=== PATIENT | male | born 1975 | race Caucasian/White ===

== ENCOUNTER → 2020-09-28 13:57 | Outpatient (BNVA) | payer BC, SELFPAY | PROVIDERS: Visit Provider Family Medicine | DX: E78.2 Mixed hyperlipidemia (principal); I10 Essential (primary) hypertension; Q55.9 Congenital malformation of male genital organ, unspecified; K21.9 Gastro-esophageal reflux disease without esophagitis | CPT/HCPCS: 80053; 80061; 85025 ==

== ENCOUNTER → 2021-05-03 15:19 | Outpatient (BNVA) | payer BC, SELFPAY | PROVIDERS: Visit Provider Family Medicine | DX: E78.2 Mixed hyperlipidemia (principal); I10 Essential (primary) hypertension; N50.89 Other specified disorders of the male genital organs; K21.9 Gastro-esophageal reflux disease without esophagitis | CPT/HCPCS: 80053; 80061; 84443; 85025 ==

== ENCOUNTER → 2021-09-02 13:38 | Outpatient (BNVA) | payer BC, SELFPAY | PROVIDERS: Visit Provider Nurse Practitioner Family | DX: Z11.52 Encounter for screening for COVID-19 (principal); Z20.822 Contact with and (suspected) exposure to COVID-19 | CPT/HCPCS: 87635 ==

== ENCOUNTER → 2021-11-08 11:25 | Outpatient (BNVA) | payer BC, SELFPAY | PROVIDERS: Visit Provider Family Medicine | DX: E78.2 Mixed hyperlipidemia (principal); I10 Essential (primary) hypertension; K21.9 Gastro-esophageal reflux disease without esophagitis | CPT/HCPCS: 80053; 80061; 85025 ==

== ENCOUNTER → 2022-08-16 10:59 | Outpatient (BNVA) | payer BC, SELFPAY | PROVIDERS: PCP Family Medicine; Visit Provider Nurse Practitioner Family | DX: F41.9 Anxiety disorder, unspecified (principal); I10 Essential (primary) hypertension; E78.2 Mixed hyperlipidemia | CPT/HCPCS: 80053; 80061; 82607; 83735; 84443; 85025 ==

== ENCOUNTER → 2022-09-06 10:51 | Outpatient (BNVA) | payer BC, SELFPAY | PROVIDERS: PCP Family Medicine; Visit Provider Nurse Practitioner Family | DX: D72.819 Decreased white blood cell count, unspecified (principal) | CPT/HCPCS: 85025 ==

== ENCOUNTER 2022-10-30 21:51 | Inpatient (IN) | payer BC, SELFPAY ==
[2022-10-30 21:53] VITALS: BP 138/96; PULSE 104; RESP 22; TEMP 36.4; O2SAT 98
[2022-10-30 21:57] VITALS: PULSE 102
--- NOTE | 2022-10-30 22:00 | ED.C_ITS ---
HPI - Psych General: Chief Complaint: Anxiety Stated Complaint: anxiety, not feeling well Time Seen by Provider: 10/30/22 21:53 Source: patient and EMS Mode of arrival: EMS Limitations: no limitations History of Present Illness: 46-year-old male states he is got a long history anxiety states has been having increasing anxiety over the last few weeks states he has been having depression along with some suicidal thoughts due to his severe anxiety he states he has no specific plan he is not currently feeling suicidal but he has had some passing suicidal thoughts. He states that he feels like he needs to get inpatient psychiatric help. Associated symptoms: Reports depression Review of Systems Const: Denies: fever(s), chills, body aches or change in appetite Eyes: Denies: blurry vision or eye discomfort ENMT: Denies: throat pain or dental pain Card: Denies: chest pain Resp: Denies: dyspnea GI: Denies: abdominal pain, nausea, vomiting or diarrhea : Denies: dysuria Musc: Denies: neck pain or back pain Skin/Breast: Denies: rash Neuro: Denies: headache(s) Psych: Reports: anxiety and depression Tony/Lymph: Denies: easy bruising All/Imm: Denies: urticaria PFSH ED PFSH: Medical History Anxiety Hypertension Mixed hyperlipidemia Social History Smoking and tobacco status: never smoked Second hand smoke exposure: No Alcohol intake: never Adopted: Yes Caregiver/support person: Yes Lives independently: Yes Marital status: Single service: No Current occupational status: employed Current occupation: [employer] History of recent travel: No Current gender identity: Male Special ari needs: No Physical Exam Const: COMMON NORMALS: no acute distress, patient oriented x3 and healthy appearing GENERAL APPEARANCE: anxious HENMT: COMMON NORMALS: normocephalic and atraumatic HEAD & SCALP: norm ocephalic and atraumatic Eye: COMMON NORMALS: Equal, round and reactive pupils present and EOMs intact bilaterally PUPIL: Yes Equal, round and reactive pupils present Neck/C-Spine: COMMON NORMALS: full ROM and supple Chest: COMMONS NORMALS: normal inspection of the chest and normal palpation of entire chest wall Resp: COMMON NORMALS: normal respiratory effort, No retractions, No use of accessory muscles and clear to auscultation bilaterally AUSCULTATION: clear to auscultation bilaterally Cardio: COMMON NORMALS: regular rate, regular rhythm and No murmurs present (Cardio) RATE: regular rate RHYTHM: regular rhythm GI: COMMON NORMALS: Normal to inspection, nondistended, normoactive bowel sounds present, Soft to palpation, non-tender and no masses PALPATION: Yes Soft to palpation Extremity: COMMON NORMALS: normal to inspection and full ROM Neuro: COMMON NORMALS: patient oriented x3, moves all extremities and no focal motor deficits Psych: COMMON NORMALS: mental status grossly normal, Normal thought process present and cooperative MOOD & AFFECT: Yes depressed mood and Yes anxious THOUGHT PROCESS: Normal thought process present Skin: COMMON NORMALS: no rashes or lesions noted and no wounds GENERAL SKIN EXAM: no rashes or lesions noted Course Vital Signs: Vital signs: Vital Signs Temperature 97.6 F 10/30/22 21:53 Pulse Rate 98 10/30/22 23:00 Respiratory Rate 18 10/30/22 23:00 Blood Pressure 135/92 10/30/22 23:00 Pulse Oximetry 98 10/30/22 23:00 Oxygen Delivery Me thod 10/30/22 21:53 MDM - Psych Medical Decision Making Patient presents here with anxiety along with depression with some suicidal ideations patient voluntarily would like to be admitted patient is medically cleared I spoke to psychiatry Dr. Elizondo and will admit to the psych singletary. Lab Data 10/30/22 22:03 10/30/22 22:03 Laboratory Results WBC 9.0 10^3/uL (4.0-10.0) 10/30/22 22:03 RBC 5.85 10^6/uL (4.1-5.3) H 10/30/22 22:03 Hgb 14.8 g/dL (11.7-16.6) 10/30/22 22:03 Hct 45.8 % (42.0-52.0) 10/30/22 22:03 MCV 78.3 fl (80-94) L 10/30/22 22:03 MCH 25.3 pg (28.0-34.0) L 10/30/22 22:03 MCHC 32.3 g/dL (30.0-36.0) 10/30/22 22:03 RDW 16.2 % (12.1-15.1) H 10/30/22 22:03 Plt Count 278 10^3/cmm (130-400) 10/30/22 22:03 MPV 9.4 fL (7.4-10.4) 10/30/22 22:03 Neut % (Auto) 70.8 % 10/30/22 22:03 Lymph % (Auto) 21.5 % 10/30/22 22:03 [place] % (Auto) 7.2 % 10/30/22 22:03 Eos % (Auto) 0.2 % 10/30/22 22:03 Baso % (Auto) 0.2 % 10/30/22 22:03 Neut # (Auto) 6.36 10^3/uL (1.8-7.7) 10/30/22 22:03 Lymph # (Auto) 1.9 10^3/uL (0.8-4.8) 10/30/22 22:03 [place] # (Auto) 0.7 10^3/uL (0.2-0.9) 10/30/22 22:03 Eos # (Auto) 0.0 10^3/uL (0.0-0.8) 10/30/22 22:03 Baso # (Auto) 0.0 10^3/uL (0.0-0.1) 10/30/22 22:03 Nucleated RBC % (auto) 0 % 10/30/22 22:03 Nucleated RBCs # 0.0 /100WBC 10/30/22 22:03 Sodium 141 mmol/L (136-145) 10/30/22 22:03 Potassium 3.9 mmol/L (3.5-5.1) 10/30/22 22:03 Chloride 106 mmol/L (98-107) 10/30/22 22:03 Carbon Dioxide 21 mmol/L (22-29) L 10/30/22 22:03 Anion Gap 17.9 (5-19) 10/30/22 22:03 BUN 15 mg/dL (6-20) 10/30/22 22:03 Creatinine 1.1 mg/dL (0.7-1.2) 10/30/22 22:03 GFR Calculation 72.1 mL/min (90-130) L 10/30/22 22:03 Glucose 80 mg/dL (65-115) 10/30/22 22:03 Calculated Osmolality 292 mOsm/kg (285-295) 10/30/22 22:03 Calcium 9.6 mg/dL (8.5-10.5) 10/30/22 22:03 Total Bilirubin 0.6 mg/dL (0.15-1.2) 10/30/22 22:03 AST 17 U/L (0-40) 10/30/22 22:03 ALT 20 U/L (0-41) 10/30/22 22:03 Alkaline Phosphatase 100 U/L (40-130) 10/30/22 22:03 Total Protein 7.5 g/dL (6.6-8.7) 10/30/22 22:03 Albumin 4.7 g/dL (3.5-5.2) 10/30/22 22:03 Globulin 2.8 g/dL (1.3-4.6) 10/30/22 22:03 Salicylates < 0.3 mg/dL (3-10) L 10/30/22 22:03 Urine Opiates Screen Negative ng/mL (Negative) 10/30/22 22:18 Acetaminophen < 5.0 ug/mL (10-30) L 10/30/22 22:03 Ur Barbiturates Screen Negative ng/mL (Negative) 10/30/22 22:18 Ur Phencyclidine Scrn Negative ng/mL (Negative) 10/30/22 22:18 Ur Amphetamines Screen Negative ng/mL (Negative) 10/30/22 22:18 U Benzodiazepines Scrn Positive ng/mL (Negative) H 10/30/22 22:18 Urine Cocaine Screen Negative ng/mL (Negative) 10/30/22 22:18 U Marijuana (THC) Screen Negative ng/mL (Negative) 10/30/22 22:18 Ethyl Alcohol < 10 mg/dL (0-10) 10/30/22 22:03 Discharge Plan Discharge Patient Disposition: Admitted As Inpatient Admit Provider: Karson Elizondo Clinical Impression: Acute anxiety, Suicidal ideation Condition: Stable Coding Level of Care Code ED Aboriginal Ceremonial Celebrant for Aguedag Fwd Exam Comprehensive
[2022-10-30] MEDS: LORazepam 1 mg Tablet 2 MG PO (22:14)
[2022-10-30 22:15] LABS: Basophils % 0.2 %; Eosinophils % 0.2 %; Hematocrit 45.8 % (42.0-52.0); Hemoglobin 14.8 g/dL (11.7-16.6); Lymphocytes # 1.9 10^3/uL (0.8-4.8); Lymphocytes % 21.5 %; Mean Corpuscular HGB Conc 32.3 g/dL (30.0-36.0); Mean Corpuscular Hemoglobin 25.3 pg (28.0-34.0); Mean Corpuscular Volume 78.3 fl (80-94); Mean Platelet Volume 9.4 fL (7.4-10.4); Monocytes # 0.7 10^3/uL (0.2-0.9); Monocytes % 7.2 %; Neutrophils # 6.36 10^3/uL (1.8-7.7); Neutrophils % 70.8 %; Nucleated Red Blood Cells % 0 %; Platelet Count 278 10^3/cmm (130-400); Red Blood Count 5.85 10^6/uL (4.1-5.3); Red Cell Distribution Width 16.2 % (12.1-15.1)
[2022-10-30 22:30] LABS: Amphetamines Screen Urine Negative (Negative); Barbiturates Screen Urine Negative (Negative); Benzodiazepines Screen Urine Positive (Negative); Cocaine Screen Urine Negative (Negative); Opiate Screen Urine Negative (Negative); PCP Screen Urine Negative (Negative); THC Screen Urine Negative (Negative)
[2022-10-30 22:45] LABS: Alanine Aminotransferase 20 U/L (0-41); Albumin Level 4.7 g/dL (3.5-5.2); Alkaline Phosphatase 100 U/L (40-130); Anion Gap 17.9 (5-19); Aspartate Amino Transferase 17 U/L (0-40); Blood Urea Nitrogen 15 mg/dL (6-20); Calcium 9.6 mg/dL (8.5-10.5); Carbon Dioxide 21 mmol/L (22-29); Chloride 106 mmol/L (98-107); Globulin 2.8 g/dL (1.3-4.6); Glomerular Filtration Rate 72.1 mL/min (90-130); Glucose 80 mg/dL (65-115); Osmolality Calculated 292 mOsm/kg (285-295); Potassium 3.9 mmol/L (3.5-5.1); Sodium 141 mmol/L (136-145); Total Bilirubin 0.6 mg/dL (0.15-1.2); Total Protein 7.5 g/dL (6.6-8.7)
--- NOTE | 2022-10-30 22:46 | ECG_ITS ---
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 Measurements Intervals [place] Rate: 102 P: 41 OR: 174 QRS: 62 QRSD: 114 T: 13 QT: 359 QTc: 468 Interpretive Statements SINUS TACHYCARDIA MODERATE INTRAVENTRICULAR CONDUCTION DELAY [110+ ms QRS DURATION] NONSPECIFIC ST ELEVATION [0.05+ mV ST ELEVATION] No previous ECG available for comparison Electronically Signed On 10-31-2022 17:47:20 HOOP BENDER TANK by Yannick Medina M.D. [id number]
[2022-10-30 22:57] LABS: Acetaminophen < 5.0 ug/mL (10-30); Alcohol Level < 10 mg/dL (0-10); Salicylate < 0.3 mg/dL (3-10)
--- NOTE | 2022-10-30 22:59 | PC.NURSE ---
Sister, Christine, updated on patient care as requested by pt.
[2022-10-30 23:00] VITALS: BP 135/92; PULSE 98; RESP 18; O2SAT 98
[2022-10-30 23:10] VITALS: BP 114/76; PULSE 110; RESP 18; O2SAT 93
[2022-10-31] MEDS: hyDROXYzine 25 mg Capsule 50 MG PO (00:25)
[2022-10-31 06:00] VITALS: RESP 18
--- NOTE | 2022-10-31 06:33 | PC.NURSE ---
46-yr.old male admitted to room #154-2. Arrived to unit from ED via w/c accompanied by RN and security. Patient calm and cooperative with assessment. Denies SI, HI or AVH. Rated anxiety at a 1/10 and when asked about depression stated I'm good. Denied pain. Alert and Ox4. Stated he has been having trouble with anxiety and dizziness for several weeks now. Stated he was driving home from work and felt overwhelmed so he stopped at a neighbor's house so they could call 911. Reported he was feeling tingling in his hand and his heart was palpitating. VS-WNL when taken on this unit. Skin assessment completed with no skin issues noted. No contraband found. Patient is voluntary. Unit rules and expectations reviewed. Voiced understanding. Snacks and fluids offered and taken. Orientated to unit and room.
[2022-10-31] MEDS: famotidine 20 mg Tablet PO ×2 (08:40→20:11)
[2022-10-31] MEDS: lisinopril 5 mg Tablet PO (08:40)
[2022-10-31] MEDS: atorvastatin 40 mg Tablet PO (08:40)
--- NOTE | 2022-10-31 10:42 | P.NPUHP_ITS ---
Providers/Chief Complaint Admitting Physician: Aldair Khalil MD Primary Care Provider: Wandy Mcfadden MD Chief Complaint: anxiety, not feeling well HPI NPU History of Present Illness Cipriano Lewis is a 46 year old male with no previous history of inpatient psy chiatric treatment who had arrived into the emergency room complaining of having anxiety that has been exacerbated over the past few weeks due to unspecified stress. He reports that he has been having problems with managing worry since his childhood. He reports having difficulties with controlling worry and often struggles with having difficulties with both falling asleep and staying asleep. He reports that he had been working on a daily basis but on the day of his admission mission he had gone to work and felt that he would not be able to manage himself. He reports that he has been complaining of problems with his balance and has complaints of dizziness. He had reported that his primary care provider had placed him on Valium for this problem approximately 6 months ago. He complains of feeling muscle tension at times and often complains of upset stomach and reports having difficulties with managing stress. He reports that he may become irritable at times due to his stress. He reports that over the course of the past several months the ongoing medical issues including the dizz iness has led to the patient feeling more depressed with diminished energy decreased appetite and low motivation. He reports that he has not had any plan to hurt himself although he had reported some statements in the past that he had felt so anxious that he felt as if he was going to . He reports no history of manic symptoms. He denies any history of psychotic symptoms. He reports that he is frequently isolative and reports no use of drugs or alcohol. He reports no prior history of self-injurious behavior. The patient reports that he had been attempting to receive outpatient psychiatric treatment along with therapy but reports that the waiting list had been extensive and he reports that he was uncertain as to whether he could manage his anxiety unless something had changed. Inpatient psychiatric history: None Outpatient psychiatric history: None Medical history hypertension, mixed hyperlipidemia, hiatal hernia by history, Surgical History: none Allergies: nkda Medications: Valium 2mg at night, lisinopril, crestor, famotidine, Legal History: none Drug and Alcohol history: none Family psychiatric history: alcoholism-father Social History: no developmental delays noted, he reports having no contact with his biological parents as he states that he was adopted nearly at and raised by his adoptive parents. He was born in [facility] and has a few siblings. He denied any history of sexual physical or emotional abuse. He reports that his father had when the patient was 17 years old. He had graduated high school and reported that he was anxious in school and often struggled with relationships with others as he currently has never been nor is he dating. He has no children. He has been working for the last 18 years in a [employer] in [place] and currently lives by himself in his own home in [place] [facility]. Meds NPU Home Medications Medication Instructions Recorded Confirmed Last Taken Type famotidine 20 mg tablet (Pepcid) 20 mg PO BID #60 tabs 11/23/20 10/31/22 10/30/22 Rx diazepam 2 mg tablet 2 mg PO .qhs vertigo #30 tabs 10/04/22 10/31/22 10/30/22 Rx lisinopril 5 mg tablet 5 mg PO DAILY 10/31/22 10/31/22 10/30/22 History rosuvastatin 20 mg tablet 20 mg PO DAILY 10/31/22 10/31/22 10/30/22 History Allergies Allergy/AdvReac Type Severity Reaction Status Date / Time No Known Allergies Allergy Verified 10/10/22 08:53 [facility] NPU PFSH: Medical History Anxiety Hypertension Mixed hyperlipidemia Social History Smoking and tobacco status: never smoked Second hand smoke exposure: No Alcohol intake: never Adopted: Yes Caregiver/support person: Yes Lives independently: Yes Marital status: Single service: No Current occupational status: employed Current occupation: [employer] History of recent travel: No Current gender identity: Male Special ari needs: No Mental Status Exam MSE Comments: He is then anxious white male who appeared his stated age he was sweating throughout much of the interview with a jay complexion. He had fleeting eye contact but was pleasant but in some acute distress. His gait was within normal limits. His hygiene was fair. There was no evidence of any abnormal involuntary motor movements tics or tremors appreciated. His speech was normal in regards to rate rhythm and prosody. There was no evidence of any pressured speech. his mood was described as anxious. His affect was mood congruent and anxious with restricted range appreciated. He minimized any suicidal or homicidal ideation. He did not appear to be responding internal stimuli. There was no evidence of any delusional thinking. He had a few somatic complaints. His attention appeared variable as it appeared at times to be lost in thought and struggled with answering questions succinctly. His insight was poor. His judgment was poor. His impulse control remained guarded. He was alert and oriented to person place and time. His recent and remote memory appeared intact. Vitals/I&O/Wt Last Vital Signs Temp 97.6 F 10/30/22 21:53 Pulse 110 H 10/30/22 23:10 Resp 18 10/31/22 06:00 BP 114/76 10/30/22 23:10 Pulse Ox 93 10/30/22 23:10 O2 Del Method 10/30/22 23:09 Weight last 48 hrs Weight 88.995 kg Data NPU 10/30/22 22:03 10/30/22 22:03 A&P Assessment and plan (1) Suicidal ideation: . (2) Generalized anxiety disorder: (3) Major depressive disorder: Plan The patient is a 46-year-old white male who presents with significant anxiety somatic complaints with vague unclear suicidal thoughts with limited psychiatric treatment in the past and with an extended history of anxiety currently on no medications and not receiving psychotherapy. #1 therapeutic observation 15-minute checks. #2 recommend sober living treatment at the highest level of care to which the patient is willing to commit. #3 change Valium to 1 mg twice a day. #4 restart other medications and begin Zoloft 25 mg daily anxiety and depression. #5 engage patient in individual milieu and group therapy Involuntary Hold Information 96 Hour Hold: 96 Hour Involuntary Admission: No Attestations NPU Medical Necessity Statement*: Inpatient hospitalization is medically necessary and the clinical appropriate intervention at this time. We will monitor medications and make changes as indicated. The patient will be in the hospital for over 2 midnights. His likely length of stay is 3 to 5 days. Coding Level of Care Code New Pt Acute Spray Gun Striper for Aguedag Fwd Patient Type New History Problem Focused Exam Problem Focused Medical Decision Making Straight Forward Diagnoses Suicidal ideation R45.851 Generalized anxiety disorder F41.1 Major depressive disorder F32.9
[2022-10-31 14:00] VITALS: BP 150/89; PULSE 106; RESP 18; TEMP 36.4; O2SAT 99
[2022-10-31 20:22] VITALS: BP 123/83; PULSE 91; RESP 18; TEMP 36.5; O2SAT 97
[2022-11-01 06:00] VITALS: RESP 16
[2022-11-01] MEDS: lisinopril 5 mg Tablet PO (10:30)
[2022-11-01] MEDS: famotidine 20 mg Tablet PO ×2 (10:30→18:24)
[2022-11-01] MEDS: atorvastatin 40 mg Tablet PO (10:31)
[2022-11-01] MEDS: sertraline 50 mg Tablet 25 MG PO (11:18)
[2022-11-01] MEDS: diazePAM 2 mg Tablet 1 MG PO ×2 (11:51→18:24)
[2022-11-01 14:00] VITALS: BP 126/83; PULSE 106; RESP 18; TEMP 36.6; O2SAT 98
--- NOTE | 2022-11-01 18:39 | W.PM.NPUPNS ---
Subjective NPU Subjective: 46-year-old white male with a history of anxiety and depression admitted for vague suicidal ideation. He continued to endorse feeling lightheaded at times. He had reported struggles with maintaining his concentration and reported chronic worry to the extent that it had led him to be unable to attend work without feeling excessively anxious to the point that he would have to leave. He reports the depression had been severe and continues to report depressed mood but reports feeling more hopeful about getting help. He did not endorse any suicidal thoughts. He had reported that his 2 older sisters had been very concerned about his wellbeing. Staff notes the patient had been somewhat anxious and the patient reported having difficulties with attending groups as he felt off and that people were judging him in social situations. Mental Status Exam MSE Comments: He is then anxious white male who appeared his stated age he was sweating throughout much of the interview with a jay complexion. He had fleeting eye contact but was pleasant but in some acute distress. His gait was within normal limits. His hygiene was fair. There was no evidence of any abnormal involuntary motor movements tics or tremors appreciated. His speech was normal in regards to rate rhythm and prosody. There was no evidence of any pressured speech. his mood was described as okay. His affect was mood incongruent and anxious with restricted range appreciated. He minimized any suicidal or homicidal ideation. He did not appear to be responding internal stimuli. There was no evidence of any delusional thinking. He had a few somatic complaints. His attention appeared variable as it appeared at times to be lost in thought and struggled with answering questions succinctly. His insight was poor. His judgment was poor. His impulse control remained guarded. He was alert and oriented to person place and time. His recent and remote memory appeared intact. Vitals/I&O/Wt Last Vital Signs Temp 97.9 F 11/01/22 14:00 Pulse 106 H 11/01/22 14:00 Resp 18 11/01/22 14:00 BP 126/83 11/01/22 14:00 Pulse Ox 98 11/01/22 14:00 O2 Del Method 11/01/22 14:00 Weight last 48 hrs Weight 88.995 kg Data NPU 10/30/22 22:03 10/30/22 22:03 A&P Assessment and plan (1) Suicidal ideation: . (2) Generalized anxiety disorder: (3) Major depressive disorder: Plan The patient is a 46-year-old white male who presents with significant anxiety somatic complaints with vague unclear suicidal thoughts with limited psychiatric treatment in the past and with an extended history of anxiety currently on no medications and not receiving psychotherapy. #1 therapeutic observation 15-minute checks. #2 recommend sober living treatment at the highest level of care to which the patient is willing to commit. #3 change Valium to 1 mg twice a day. #4 restart other medications and begin Zoloft 25 mg daily anxiety and depression. #5 engage patient in individual milieu and group therapy Involuntary Hold Information 96 Hour Hold: 96 Hour Involuntary Admission: No Attestations NPU Medical Necessity Statement*: Inpatient hospitalization is medically necessary and the clinical appropriate intervention at this time. We will monitor medications and make changes as indicated with his likely length of stay is 3 to 5 days. Coding Level of Care Code Established Pt Acute Operations Plant Attendant for Nevaeh Saavedra Patient Type Established History Problem Focused Exam Problem Focused Medical Decision Making Straight Forward Diagnoses Suicidal ideation R45.851 Generalized anxiety disorder F41.1 Major depressive disorder F32.9
[2022-11-01 20:22] VITALS: BP 121/76; PULSE 95; RESP 16; TEMP 36.4; O2SAT 99
[2022-11-02 06:00] VITALS: RESP 18
[2022-11-02] MEDS: famotidine 20 mg Tablet PO ×2 (08:24→17:10)
[2022-11-02] MEDS: atorvastatin 40 mg Tablet PO (08:25)
[2022-11-02] MEDS: diazePAM 2 mg Tablet 1 MG PO ×2 (08:25→17:10)
[2022-11-02] MEDS: sertraline 50 mg Tablet 25 MG PO (08:25)
[2022-11-02] MEDS: lisinopril 5 mg Tablet PO (08:25)
[2022-11-02 14:00] VITALS: RESP 18
--- NOTE | 2022-11-02 17:11 | PC.NURSE ---
HEATER ENGINEER HELPER HI WITNESS WASTING 1MG OF DIAZEPAM IN SHARPS CONTAINER AT NURSES STATION.
--- NOTE | 2022-11-02 17:14 | P.NPUPN_ITS ---
Subjective NPU Subjective: 46-year-old white male with a history of anxiety and depression admitted for vague suicidal ideation. He continued to endorse feeling lightheaded. He reported anxiety about returning to his job and losing it again. Patient had continued to report having a myriad of different worries and reported having difficulties with controlling his worry. He had continued to ruminate about his problems. He had reported that he had often been paralyzed by his anxiety and reported struggles in social situations. Patient denied thoughts of hurting himself. He did not endorse any problems with his medications at this time. He had reported that he felt that he had had a panic attack which had caused his initial worry that had led to his hospitalization. Mental Status Exam MSE Comments: He is an anxious white male who appeared his stated age. He was sweating throughout much of the interview with a jay complexion. He had fleeting eye contact but was pleasant but in some acute distress. His gait was within normal limits. His hygiene was fair. There was no evidence of any abnormal involuntary motor movements tics or tremors appreciated. His speech was normal in regards to rate with some stammering noted. There was no evidence of any pressured speech. His mood was described as allright. His affect was mood incongruent and anxious with restricted range appreciated. He minimized any suicidal or homicidal ideation. He did not appear to be responding internal stimuli. There was no evidence of any delusional thinking. He had a few somatic complaints. His attention appeared variable as it appeared at times to be lost in thought and struggled with answering questions succinctly. His insight was poor. His judgment was poor. His impulse control remained guarded. He was alert and oriented to person place and time. His recent and remote memory appeared intact. Vitals/I&O/Wt Last Vital Signs Temp 97.6 F 11/01/22 20:22 Pulse 95 11/01/22 20:22 Resp 18 11/02/22 06:00 BP 121/76 11/01/22 20:22 Pulse Ox 99 11/01/22 20:22 O2 Del Method 11/01/22 14:00 Data NPU 10/30/22 22:03 10/30/22 22:03 A&P Assessment and plan (1) Suicidal ideation: . (2) Generalized anxiety disorder: (3) Major depressive disorder: Plan The patient is a 46-year-old white male who presents with significant anxiety somatic complaints with vague unclear suicidal thoughts with limited psychiatric treatment in the past and with an extended history of anxiety currently on no medications and not receiving psychotherapy. #1 therapeutic observation 15-minute checks. #2 recommend sober living treatment at the highest level of care to which the patient is willing to commit. #3 change Valium to 1 mg twice a day. #4 increase Zoloft to 50 mg daily anxiety and depression. #5 engage patient in individual milieu and group therapy Involuntary Hold Information 96 Hour Hold: 96 Hour Involuntary Admission: No Attestations NPU Medical Necessity Statement*: Inpatient hospitalization is medically necessary and the clinical appropriate intervention at this time. We will monitor medications and make changes as indicated with his likely length of stay is 3 to 5 days. Coding Level of Care Code Established Pt Acute Internet Designer for Nevaeh Saavedra Patient Type Established History Problem Focused Exam Problem Focused Medical Decision Making Straight Forward Diagnoses Suicidal ideation R45.851 Generalized anxiety disorder F41.1 Major depressive disorder F32.9
[2022-11-02 19:53] VITALS: BP 128/80; PULSE 92; RESP 16; TEMP 36.6; O2SAT 98
[2022-11-03 05:59] VITALS: BP 125/88; PULSE 107; RESP 16; TEMP 37; O2SAT 97
[2022-11-03] MEDS: famotidine 20 mg Tablet PO (08:57)
[2022-11-03] MEDS: diazePAM 2 mg Tablet 1 MG PO (08:58)
[2022-11-03] MEDS: lisinopril 5 mg Tablet PO (08:58)
[2022-11-03] MEDS: atorvastatin 40 mg Tablet PO (08:59)
[2022-11-03] MEDS: sertraline 50 mg Tablet 25 MG PO (09:01)
--- NOTE | 2022-11-03 15:46 | W.PM.NPUDCS ---
Diagnoses at Discharge Discharge Diagnosis (1) Suicidal ideation: Status: Acute (2) Generalized anxiety disorder: Status: Acute (3) Major depressive disorder: Status: Acute Reason for Visit Reason for Visit: anxiety, not feeling well Brief History: History of Present Illness Cipriano Lewis is a 46 year old male with no previous history of inpatient psychiatric treatment who had arrived into the emergency room complaining of having anxiety that has been exacerbated over the past few weeks due to unspecified stress.? He reports that he has been having problems with managing worry since his childhood.? He reports having difficulties with controlling worry and often struggles with having difficulties with both falling asleep and staying asleep.? He reports that he had been working on a daily basis but on the day of his admission mission he had gone to work and felt that he would not be able to manage himself.? He reports that he has been complaining of problems with his balance and has complaints of dizziness.? He had reported that his primary care provider had placed him on Valium for this problem approximately 6 months ago.? He complains of feeling muscle tension at times and often complains of upset stomach and reports having difficulties with managing stress.? He reports that he may become irritable at times due to his stress.? He reports that over the course of the past several months the ongoing medical issues including the dizziness has led to the patient feeling more depressed with diminished energy decreased appetite and low motivation.? He reports that he has not had any plan to hurt himself although he had reported some statements in the past that he had felt so anxious that he felt as if he was going to .? He reports no history of manic symptoms.? He denies any history of psychotic symptoms.? He reports that he is frequently isolative and reports no use of drugs or alcohol.? He reports no prior history of self-injurious behavior.? The patient reports that he had been attempting to receive outpatient psychiatric treatment along with therapy but reports that the waiting list had been extensive and he reports that he was uncertain as to whether he could manage his anxiety unless something had changed. Inpatient psychiatric history: None Outpatient psychiatric history: None Medical history hypertension, mixed hyperlipidemia, hiatal hernia by history, Surgical History: none Allergies: nkda Medications: Valium 2mg at night, lisinopril, crestor, famotidine, Legal History: none Drug and Alcohol history: none Family psychiatric history: alcoholism-father Social History: no developmental delays noted, he reports having no contact with his biological parents as he states that he was adopted nearly at and raised by his adoptive parents.? He was born in [place] [facility] and has a few siblings.? He denied any history of sexual physical or emotional abuse.? He reports that his father had when the patient was 17 years old.? He had graduated high school and reported that he was anxious in school and often struggled with relationships with others as he currently has never been nor is he dating.? He has no children.? 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 Hospital Course Hospital Course Discharge Summary: During the hospitalization, patient had routine laboratory studies which were within normal limits except for few outliers. Additionally there was a general medical evaluation which was also within normal limits and revealed no new acute processes. The patient was endorsing symptoms suggestive of generalized anxiety disorder and major depressive disorder and the patient's diazepam was adjusted to 1 mg twice a day instead of 2 mg at night. Furthermore, patient was started on Zoloft and titrated up to a dose of 50 mg daily. Patient had reported a desire for psychotherapy and this was deemed to be essential for his success on an outpatient basis. At the time of discharge, lethality was denied and psychosis was resolving. Mood and anxiety were well managed. Patient endorsed a plan to avoid all drugs of abuse and follow-up with the aftercare recommendations of the treatment team. Patient was evaluated and deemed to be absent credible lethality, and had achieved the maximum benefit from an inpatient hospitalization, so was discharged. Involuntary Hold Information 96 Hour Hold: 96 Hour Involuntary Admission: No Mental Status Exam MSE Comments: He is an anxious white male who appeared his stated age. He was sweating throughout much of the interview. He had fleeting eye contact and gaze avoidance but was pleasant but in some acute distress. His gait was within normal limits. His hygiene was fair. There was no evidence of any abnormal involuntary motor movements tics or tremors appreciated. His speech was normal in regards to rate and rhythm. There was no evidence of any pressured speech. His mood was described as allright. His affect was anxious. He minimized any suicidal or homicidal ideation on discharge. He did not appear to be responding internal stimuli. There was no evidence of any delusional thinking. He had continued few somatic complaints. His attention remained variable. His insight was limited. His judgment was adequate. His impulse control was fair. He was alert and oriented to person place and time. His recent and remote memory appeared intact. Discharge Data Studies Completed and Pending: Laboratory Results WBC 9.0 10^3/uL (4.0- 10.0) 10/30/22 22:03 RBC 5.85 10^6/uL (4.1 -5.3) H 10/30/22 22:03 Hgb 14.8 g/dL (11.7-1 6.6) 10/30/22:03 Hct 45.8 % (42.0-52.0 ) 10/30/22: MCV 78.3 fl (80-94) L 10/30/22: MCH 25.3 pg (28.0-34. 0) L 10/30/22: MCHC 32.3 g/dL (30.0-3 6.0) 10/30/22 22: RDW 16.2 % (12.1-15.1 ) H 10/30/22 22:03 Plt Count 278 10^3/cmm (130 -400) 10/30/22 22:03 MPV 9.4 fL (7.4-10.4) 10/30/22 22:03 Neut % (Auto) 70.8 % 10/30/22 22:03 Lymph % (Auto) 21.5 % 10/30/22 22:03 [place] % (Auto) 7.2 % 10/30/22 22: Eos % (Auto) 0.2 % 10/30/22 22:03 Baso % (Auto) 0.2 % 10/30/22 22:03 Neut # (Auto) 6.36 10^3/uL (1.8 -7.7) 10/30/22:03 Lymph # (Auto) 1.9 10^3/uL (0.8- 4.8) 10/30/22 22:03 [place] # (Auto) 0.7 10^3/uL (0.2- 0.9) 10/30/22 22:03 Eos # (Auto) 0.0 10^3/uL (0.0- 0.8) 10/30/22 22:03 Baso # (Auto) 0.0 10^3/uL (0.0- 0.1) 10/30/22 22:03 Nucleated RBC % (a uto) 0 % 10/30/22 22:03 Nucleated RBCs # 0.0 /100WBC 10/30/22 22:03 Sodium 141 mmol/L (136-1 45) 10/30/22 22:03 Potassium 3.9 mmol/L (3.5-5 .1) 10/30/22 22:03 Chloride 106 mmol/L (98-10 7) 10/30/22 22:03 Carbon Dioxide 21 mmol/L (22-29) L 10/30/22 22:03 Anion Gap 17.9 (5-19) 10/30/22 22:03 BUN 15 mg/dL (6-20) 10/30/22 22:03 Creatinine 1.1 mg/dL (0.7-1. 2) 10/30/22 22:03 GFR Calculation 72.1 mL/min (90-1 30) L 10/30/22 22:03 Glucose 80 mg/dL (65-115) 10/30/22 22:03 Calculated Osmolal ity 292 mOsm/kg (285- 295) 10/30/22 22:03 Calcium 9.6 mg/dL (8.5-10 .5) 10/30/22 22:03 Total Bilirubin 0.6 mg/dL (0.15-1 .2) 10/30/22 22:03 AST 17 U/L (0-40) 10/30/22 22: ALT 20 U/L (0-41) 10/30/22 22:03 Alkaline Phosphata se 100 U/L (40-130) 10/30/22 22:03 Total Protein 7.5 g/dL (6.6-8.7 ) 10/30/22 22: Albumin 4.7 g/dL (3.5-5.2 ) 10/30/22 22: Globulin 2.8 g/dL (1.3-4.6 ) 10/30/22 22:03 Salicylates < 0.3 mg/dL (3-10 ) L 10/30/22 22:03 Urine Opiates Scre en Negative ng/mL (N egative) 10/30/22 22:18 Acetaminophen < 5.0 ug/mL (10-3 0) L 10/30/22 22:03 Ur Barbiturates Sc reen Negative ng/mL (N egative) 10/30/22 22:18 Ur Phencyclidine S crn Negative ng/mL (N egative) 10/30/22 22:18 Ur Amphetamines Sc reen Negative ng/mL (N egative) 10/30/22 22:18 U Benzodiazepines Scrn Positive ng/mL (N egative) H 10/30/22 22:18 Urine Cocaine Scre en Negative ng/mL (N egative) 10/30/22 22:18 U Marijuana (THC) Screen Negative ng/mL (N egative) 10/30/22 22:18 Ethyl Alcohol < 10 mg/dL (0-10) 10/30/22 22:03 Vitals: Last Vital Signs Temp 98.6 F 11/03/22 05:59 Pulse 107 H 11/03/22 05:59 Resp 16 11/03/22 05:59 BP 125/88 11/03/22 05:59 Pulse Ox 97 11/03/22 05:59 O2 Del Method 11/02/22 19:53 Discharge Plan Discharge Patient Disposition: Home Condition: Stable Prescriptions: New diazepam 2 mg Tablet 1 mg PO BID 15 Days Qty: 15 1RF sertraline 50 mg Tablet 50 mg PO DAILY 30 Days Qty: 30 1RF Continued famotidine [Pepcid] 20 mg tablet 20 mg PO BID Qty: 60 3RF lisinopril 5 mg tablet 5 mg PO DAILY rosuvastatin 20 mg tablet 20 mg PO DAILY Discontinued diazepam 2 mg tablet 2 mg PO .qhs Qty: 30 2RF Discharge Orders: Discharge Order (Routine); Ordered 11/03/22 Ordered By: Aldair Khalil Referrals: Paola Davis [Other] - 11/06/22 9:00 am (You have an appointment scheduled at 9:00 Sunday morning. 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 ) Wandy Mcfadden MD [Primary Care Provider] - Discharge Diet: Usual diet Discharge Activity: Resume usual activity Patient Instructions: Diazepam (By mouth), Sertraline (By mouth), Depression (DC), Anxiety (DC), Suicide Prevention (DC), Opioid Safety Discharge Attestations NPU Time Spent in Discharge Care*: less than 30 min Specific Discharge Activities: Specific discharge activities: educating patient, discussing with case sealer/social workers/dc planners, documenting/other paperwork and evaluating patient/reviewing data Coding Level of Care Code Established Pt Acute Chg FW DC note Patient Type Established History Problem Focused Exam Problem Focused Medical Decision Making Straight Forward Diagnoses Suicidal ideation R45.851 Generalized anxiety disorder F41.1 Major depressive disorder F32.9
[2022-11-03 16:19] VITALS: BP 125/88; PULSE 107; RESP 16; TEMP 37; O2SAT 97
== END 2022-11-03 17:30 | disposition home or self-care (01) | DRG 880 ==
LOC: ER 22:41 → NP 23:01
PROVIDERS: Admitting Provider Psychiatry & Neurology Psychiatry; Emergency Provider Emergency Medicine; PCP Family Medicine; Visit Provider Psychiatry & Neurology Psychiatry
DX: F41.1 Generalized anxiety disorder (principal); F32.9 Major depressive disorder, single episode, unspecified; Z81.1 Family history of alcohol abuse and dependence; I10 Essential (primary) hypertension; E78.2 Mixed hyperlipidemia
CPT/HCPCS: 80053; 80306; 80307; 85025; 93005; 97150; 97165; 99285

== ENCOUNTER → 2022-11-07 17:53 | Outpatient (BNVA) | payer BC, SELFPAY | PROVIDERS: PCP Family Medicine; Visit Provider Family Medicine | DX: F32.9 Major depressive disorder, single episode, unspecified (principal); F41.1 Generalized anxiety disorder | CPT/HCPCS: 80053; 84403 ==

== ENCOUNTER → 2022-12-18 14:27 | Outpatient (BNVA) | payer BC, SELFPAY | PROVIDERS: PCP Family Medicine; Visit Provider Family Medicine | DX: E29.1 Testicular hypofunction (principal); R79.89 Other specified abnormal findings of blood chemistry | CPT/HCPCS: 84403 ==

== ENCOUNTER → 2023-01-02 17:17 | Outpatient (BNVA) | payer BC, SELFPAY | PROVIDERS: PCP Family Medicine; Visit Provider Nurse Practitioner Family | DX: R10.9 Unspecified abdominal pain (principal) | CPT/HCPCS: 80053; 81000; 85025 ==

== ENCOUNTER 2023-03-13 12:15 | Outpatient (RCR) | payer BC, SELFPAY | END 2023-04-11 23:59 | disposition home or self-care (01) | LOC: SPT 12:15 | PROVIDERS: PCP Family Medicine; Visit Provider Family Medicine | DX: R42 Dizziness and giddiness (principal) | CPT/HCPCS: 95992; 97162 ==

== ENCOUNTER → 2023-05-28 15:15 | Outpatient (BNVA) | payer BC, SELFPAY | PROVIDERS: PCP Family Medicine; Visit Provider Family Medicine | DX: R53.83 Other fatigue (principal); I10 Essential (primary) hypertension; E78.2 Mixed hyperlipidemia | CPT/HCPCS: 80053; 80061; 82306; 82607; 83540; 84403; 84443; 85025 ==

== ENCOUNTER 2023-09-02 11:26 | Emergency (ER) | payer BC, SELFPAY ==
[2023-09-02 11:29] VITALS: BP 134/88; PULSE 92; RESP 16; TEMP 36.9; O2SAT 99; BMI 28.1
--- NOTE | 2023-09-02 11:55 | ED_ITS ---
HPI - General Adult General: Chief complaint: General Medical Stated complaint: mhe Time Seen by Provider: 09/02/23 11:27 History of Present Illness: Patient presents to the ER with complaints of anxiety and depression. Patient is on Abilify, diazepam, and Zoloft. Patient has been on these for a while per the patient patient's anxiety and depression have improved over the last year but patient is in a place now since he recently got fired from his job secondary to panic attacks that he knows he is not a good place. Patient denies suicidal or homicidal ideation. Patient has been in our crisis center before approximately a year ago for similar symptoms although he was suicidal at that time. Patient has no other complaints at this time. Review of Systems General: Reports: 10 or more systems reviewed and unremarkable except in HPI and below PFSH ED PFSH: Medical History Anxiety Hypertension Mixed hyperlipidemia Social History Smoking and tobacco/nicotine status: never used tobacco/nicotine Second hand smoke exposure: No Alcohol intake: never Substance/Drug Use: never Adopted: Yes Caregiver/support person: Yes Lives independently: Yes Marital status: Single service: No Current occupational status: employed Current occupation: [email or web address] Current gender identity: Male Special ari needs: No Physical Exam Const: COMMON NORMALS: no acute distress, average body habitus, patient oriented x3, no limitations, healthy appearing, alert and well nourished HENMT: COMMON NORMALS: normocephalic, atraumatic, hearing grossly normal bilaterally, external ears normal, Normal external nose present, moist oral mucous membranes and oropharynx normal HEAD & SCALP: normocephalic and atr aumatic NOSE: Normal external nose present EXTERNAL EAR: Yes external ears normal Neck/C-Spine: COMMON NORMALS: no JVD Chest: COMMONS NORMALS: normal inspection of the chest and normal palpation of entire chest wall Resp: COMMON NORMALS: normal respiratory effort, No retractions, No use of accessory muscles and clear to auscultation bilaterally AUSCULTATION: clear to auscultation bilaterally Cardio: COMMON NORMALS: no JVD, regular rate, regular rhythm, S1 normal heart sound present, S2 normal heart sound present, No gallops present (Cardio), No clicks present (Cardio), No murmurs present (Cardio) and No rub (Cardio) RATE: regular rate RHYTHM: regular rhythm HEART SOUNDS: S1 normal heart sound present and S2 normal heart sound present GI: COMMON NORMALS: Normal to inspection, nondistended, normoactive bowel sounds present, Soft to palpation, non-tender, No hepatosplenomegaly present and no masses PALPATION: Yes Soft to palpation and Yes No hepatosplenomegaly present : COMMON NORMALS: Yes no CVA tenderness BLADDER/KIDNEY EXAM: Yes no CVA tenderness Back/Pelvis: COMMON NORMALS: no CVA tenderness Neuro: COMMON NORMALS: patient oriented x3 SENSORIUM/ORIENTATION: Yes alert Course Vital Signs: Vital signs: Vital Signs Temperature 98.4 F 09/02/23 11:29 Pulse Rate 92 09/02/23 11:29 Respiratory Rate 16 09/02/23 11:29 Blood Pressure 134/88 09/02/23 11:29 Pulse Oximetry 99 09/02/23 11:29 Oxygen Delivery Me thod Room Air 09/02/23 11:29 MDM - General Adult Medical Decision Making Patient presents to the ER with complaints of worsening anxiety and panic attacks to the point of losing his job which is making his depression worse. Patient is currently on Abilify diazepam and Zoloft which has been on for a while. Patient is currently on 5 mg diazepam twice daily as needed. Patient states this works when he takes it. Crisis center is full with 3 people on their wait list. Had a long talk with the patient we will try this on an outpatient basis and he can follow-up as needed. We will increase the patient's diazepam to 5 mg 3 times daily as needed. Differential Diagnosis Anxiety, panic attacks, depression Medical Records I reviewed the patient's medical records. Lab Data I reviewed the patient's lab results. No radiology studies performed this visit Discharge Plan Discharge Patient Disposition: Home Clinical Impression: Anxiety Condition: Stable Prescriptions: New diazepam 5 mg tablet 5 mg PO TID PRN (Reason: anxiety) Qty: 14 0RF No Action meclizine 25 mg tablet 25 mg PO DAILY PRN (Reason: dizziness) zolpidem [Ambien] 5 mg tablet 5 mg PO .qhs PRN (Reason: insomnia) Qty: 30 1RF aripiprazole 10 mg tablet 10 mg PO DAILY Qty: 30 2RF pramipexole [Mirapex] 0.25 mg tablet 0.25 mg PO .qhs Qty: 30 3RF baclofen 10 mg tablet 10 mg PO BID PRN (Reason: back strain) Qty: 60 0RF fluticasone propionate [Allergy Relief (fluticasone)] 50 mcg/actuation spray,suspension 1 spray intranasal DAILY Qty: 16 2RF Rx Instructions: administer into each nostril pantoprazole [Protonix] 40 mg tablet,delayed release (DR/EC) 40 mg PO BID Qty: 60 3RF polyethylene glycol 3350 17 gram/dose powder See Rx Instructions .ROUTE .COMPLEX Qty: 510 0RF Dose Instruction: FILL CAP TO LINE (17 GRAMS), MIX IN 8 OUNCES OF LIQUID AND DRINK BY MOUTH ONCE DAILY Rx Instructions: FILL CAP TO LINE (17 GRAMS), MIX IN 8 OUNCES OF LIQUID AND DRINK BY MOUTH ONCE DAILY rosuvastatin 20 mg tablet See Rx Instructions .ROUTE .COMPLEX Qty: 90 2RF Dose Instruction: TAKE ONE TABLET BY MOUTH EVERY DAY Rx Instructions: TAKE ONE TABLET BY MOUTH EVERY DAY lisinopril 5 mg tablet See Rx Instructions .ROUTE .COMPLEX Qty: 90 2RF Dose Instruction: TAKE ONE TABLET BY MOUTH DAILY Rx Instructions: TAKE ONE TABLET BY MOUTH DAILY testosterone cypionate 200 mg/mL oil 200 mg SUBCUT .Q2 WEEKS 56 Days Qty: 2 1RF sertraline 50 mg tablet See Rx Instructions .ROUTE .COMPLEX Qty: 90 2RF Dose Instruction: TAKE THREE TABLETS BY MOUTH DAILY Rx Instructions: TAKE THREE TABLETS BY MOUTH DAILY diazepam [Valium] 5 mg tablet 5 mg PO BID PRN (Reason: anxiety) Qty: 60 2RF Discharge Orders: Discharge ED (Routine); Ordered 09/02/23 Ordered By: Tray Segura Referrals: Wandy Mcfadden MD [Primary Care Provider] - 1 week Patient Instructions: Anxiety (ED) Activity Restrictions/Additional Instructions: Please use your medicine as prescribed. Please increase your Valium to 1 tablet 3 times a day as needed for anxiety and panic. Please follow-up with your PCP within the next 7 days on an as-needed basis. Coding Level of Care Code ED Client Engagement Specialist for Nevaeh Saavedra
== END 2023-09-02 12:21 | disposition home or self-care (01) ==
PROVIDERS: Emergency Provider Emergency Medicine; PCP Family Medicine
DX: F41.9 Anxiety disorder, unspecified (principal); I10 Essential (primary) hypertension; E78.2 Mixed hyperlipidemia
CPT/HCPCS: 99283